=== PATIENT | female | born 1995 | race Caucasian/White ===

== ENCOUNTER 2016-12-15 23:43 | Emergency (ER) | payer BC ==
[2016-12-16] MEDS ORDERED: WOMEN'S DAILY1 EAC6 PO (00:28)
[2016-12-16] MEDS ORDERED: WELLBUTRIN XL150 M1 PO (00:28)
[2016-12-16] MEDS ORDERED: SINGULAIR10 M1 PO (00:28)
[2016-12-16] MEDS ORDERED: SYNTHROID175 MC1 PO (00:28)
[2016-12-16] MEDS ORDERED: VERAPAMIL ER120 M1 PO (00:28)
[2016-12-16] MEDS ORDERED: PRINIVIL5 M1 PO (00:28)
[2016-12-16] MEDS ORDERED: NEOMYCIN-POLYMY10 M5 OT (00:38)
== END 2016-12-16 00:35 ==
LOC: EDMED 23:43
PROC: 09C47ZZ Extirpation of Matter from Left External Auditory Canal, Via Natural or Artificial Opening (ICD-10-PCS; principal; 2016-12-15)
DX: T16.2XXA Foreign body in left ear, initial encounter (principal)